=== PATIENT | female | born 1960 | race Asian ===

== ENCOUNTER 2024-05-23 20:05 | Inpatient (IN) | payer SELFPAY ==
[~2024-05-23] VITALS: Ht 157.5 cm; Wt 65.0 kg
[2024-05-23] MEDS ORDERED: ISOVUE-370 76% 100ML VIAL As Ordered ONE (20:54)
[2024-05-23] MEDS: LABETALOL 100MG/20ML VIAL IV STA (21:06)
[2024-05-23 21:24] LABS: BASO # 0.1 10^3/uL (0.0-0.2); BASO % 0.5 % (0.0-1.0); EOS # 0.1 10^3/uL (0.0-0.5); EOS % 1.4 % (0.0-3.0); HEMATOCRIT 44.7 % (36.0-47.0); HEMOGLOBIN 15.4 g/dl (12.0-15.5); LYMPH # 3.7 10^3/uL (1.5-5.0); LYMPH % 37.4 % (24.0-44.0); MEAN CORPUSCULAR HEMOGLOBIN 29.4 pg (27.0-33.0); MEAN CORPUSCULAR HGB CONC 34.5 g/dl (32.0-36.5); MEAN CORPUSCULAR VOLUME 85.5 fl (80.0-96.0); MONO # 0.5 10^3/uL (0.0-0.8); MONO % 5.4 % (2.0-8.0); NEUTROPHILS # 5.4 10^3/uL (1.5-8.5); NEUTROPHILS % 54.9 % (36.0-66.0); PLATELET COUNT, AUTOMATED 269 10^3/uL (150-450); RED BLOOD COUNT 5.23 10^6/uL (4.00-5.40); WHITE BLOOD COUNT 9.9 10^3/uL (4.0-10.0)
[2024-05-23 21:30] VITALS: BP 184/86; TEMP 97.4; O2SAT 100
[2024-05-23 21:49] LABS: INR 0.91
[2024-05-23] MEDS: ONDANSETRON 4MG 2ML VIAL IV ONE (22:06)
[2024-05-23 22:13] LABS: BLOOD UREA NITROGEN 15 MG/DL (9-23); CALCIUM LEVEL 9.9 MG/DL (8.3-10.6); CARBON DIOXIDE LEVEL 27 MMOL/L (20-31); CHLORIDE LEVEL 104 MMOL/L (98-107); CK-MB VALUE MASS < 1.0 NG/ML (<3.6); CPK CREATINE PHOSPHOKINASE 161 U/L (34-145); CREATININE FOR GFR 0.66 MG/DL (0.55-1.30); GLOMERULAR FILTRATION RATE > 60.0 (>45); GLUCOSE, FASTING 101 MG/DL (74-106); MB/CK RELATIVE INDEX 0.62 (< OR =4); POTASSIUM SERUM 5.5 MMOL/L (3.5-5.1); SODIUM LEVEL 139 MMOL/L (136-145)
[2024-05-23] MEDS ORDERED: ACETAMINOPHEN TAB 650MG DOSE (2X325MG) PO PRN (23:30)
[2024-05-23] MEDS ORDERED: LABETALOL 100MG/20ML VIAL IV PRN (23:30)
[2024-05-24] MEDS ORDERED: HOME MED LIST COMPLETE! XX SCH (00:25)
[2024-05-24 02:15] LABS: AMPHETAMINES LEVEL URINE NEGATIVE (NEGATIVE)
[2024-05-24 02:16] LABS: BARBITURATES URINE NEGATIVE (NEGATIVE); BENZODIAZEPINES URINE NEGATIVE (NEGATIVE); CANNABINOIDS URINE NEGATIVE (NEGATIVE); COCAINE METABOLITE URINE NEGATIVE (NEGATIVE); METHADONE URINE NEGATIVE (NEGATIVE); OPIATES URINE NEGATIVE (NEGATIVE); PHENCYCLIDINE URINE NEGATIVE (NEGATIVE)
[2024-05-24 03:33] VITALS: BP 163/84; TEMP 97.3; O2SAT 99
[2024-05-24] MEDS: THIAMINE INJection 500 MG in NS 100 ML IV SCH (03:49)
[2024-05-24 04:00] VITALS: BP 163/84; TEMP 97.3; O2SAT 99
[2024-05-24] MEDS: cefTRIAXone SOD 1 GM in D5W MINI-BAG PLUS 50 ML IV ONE (04:10)
[2024-05-24 07:21] LABS: HEMATOCRIT 41.1 % (36.0-47.0); HEMOGLOBIN 13.8 g/dl (12.0-15.5); MEAN CORPUSCULAR HEMOGLOBIN 29.4 pg (27.0-33.0); MEAN CORPUSCULAR HGB CONC 33.6 g/dl (32.0-36.5); MEAN CORPUSCULAR VOLUME 87.4 fl (80.0-96.0); PLATELET COUNT, AUTOMATED 206 10^3/uL (150-450); WHITE BLOOD COUNT 7.7 10^3/uL (4.0-10.0)
[2024-05-24 07:32] LABS: HEMOGLOBIN A1c 5.6 % (4.0-6.0)
[2024-05-24 07:56] LABS: ALBUMIN 3.9 G/DL (3.2-5.2); ALKALINE PHOSPHATASE 74 U/L (46-116); ALT/SGPT 17 U/L (7.0-40); AST/SGOT 12 U/L (<34); BILIRUBIN,TOTAL 0.7 MG/DL (0.3-1.2); BLOOD UREA NITROGEN 13 MG/DL (9-23); CALCIUM LEVEL 9.3 MG/DL (8.3-10.6); CARBON DIOXIDE LEVEL 29 MMOL/L (20-31); CHLORIDE LEVEL 104 MMOL/L (98-107); CHOLESTEROL LEVEL 214 MG/DL (<200); CREATININE FOR GFR 0.72 MG/DL (0.55-1.30); GLOMERULAR FILTRATION RATE > 60.0 (>45); GLUCOSE, FASTING 102 MG/DL (74-106); HDL CHOLESTEROL 53.4 MG/DL (>40); MAGNESIUM LEVEL 2.1 MG/DL (1.8-2.4); NON-HDL-C 160.6 MG/DL; POTASSIUM SERUM 3.8 MMOL/L (3.5-5.1); SODIUM LEVEL 140 MMOL/L (136-145); TOTAL PROTEIN 6.3 G/DL (5.7-8.2); TRIGLYCERIDES LEVEL 118 MG/DL (<150)
[2024-05-24 07:57] LABS: VITAMIN B12 LEVEL 420 PG/ML (211-911)
[2024-05-24 07:58] LABS: THYROID STIMULATING HORMONE 2.221 uIU/ML (0.55-4.78)
[2024-05-24] MEDS ORDERED: PANTOPRAZOLE 40MG TAB (PROTONIX) PO ONE (09:00)
[2024-05-24 10:00] VITALS: BP 143/70; TEMP 97.9; O2SAT 98
[2024-05-24] MEDS: ENOXAPARIN 40MG/0.4ML SYRINGE (J1650 PER 10MG) SC SCH (10:07)
[2024-05-24] MEDS: PANTOPRAZOLE 40MG TAB (PROTONIX) PO SCH (10:08)
[2024-05-24 12:47] VITALS: BP 142/74; TEMP 97.6; O2SAT 100
[2024-05-24 16:00] VITALS: BP 105/59; TEMP 97.9; O2SAT 96
[2024-05-24] MEDS: SUMAtriptan SUCCINATE 25 MG TAB PO ONE (17:38)
[2024-05-24] MEDS: ATORVASTATIN 20 MG TAB PO SCH (17:38)
[2024-05-24 19:11] VITALS: BP 157/80; O2SAT 97
[2024-05-24] MEDS: SUMAtriptan SUCCINATE 25 MG TAB PO PRN (19:57)
[2024-05-24] MEDS: ONDANSETRON 4MG 2ML VIAL IV ONE (22:08)
[2024-05-25 00:40] VITALS: BP 118/57; TEMP 98.2; O2SAT 97
[2024-05-25 04:09] VITALS: BP 115/68; TEMP 97; O2SAT 98
[2024-05-25] MEDS: cefTRIAXone SOD 1 GM in D5W MINI-BAG PLUS 50 ML IV SCH (05:52)
[2024-05-25 06:30] LABS: BLOOD UREA NITROGEN 13 MG/DL (9-23); CALCIUM LEVEL 9.2 MG/DL (8.3-10.6); CARBON DIOXIDE LEVEL 29 MMOL/L (20-31); CHLORIDE LEVEL 109 MMOL/L (98-107); CREATININE FOR GFR 0.84 MG/DL (0.55-1.30); GLOMERULAR FILTRATION RATE > 60.0 (>45); GLUCOSE, FASTING 105 MG/DL (74-106); MAGNESIUM LEVEL 2.1 MG/DL (1.8-2.4); SODIUM LEVEL 144 MMOL/L (136-145)
[2024-05-25 07:19] VITALS: BP 158/78; TEMP 97.8; O2SAT 98
[2024-05-25 08:00] VITALS: BP 158/78; PULSE 59; O2SAT 98
[2024-05-25 09:50] VITALS: BP 158/78
[2024-05-25] MEDS ORDERED: SUMA25TA3 PO (11:00)
[2024-05-25] MEDS ORDERED: LISI10TA22 PO (11:00)
[2024-05-25] MEDS ORDERED: ATOR1TAB21 PO (11:00)
[2024-05-25] MEDS ORDERED: CEFD1CAP9 PO (11:00)
== END 2024-05-25 12:47 | disposition home or self-care (01) | DRG 52 ==
LOC: M ED 20:05 → M ED INP 23:27 → M PCU 05-24 03:12
PROVIDERS: ADMIT Preventive Medicine Undersea and Hyperbaric Medicine; ATTEND Student in an Organized Health Care Education/Training Program
DX: G45.4 Transient global amnesia (principal); I67.4 Hypertensive encephalopathy; K21.9 Gastro-esophageal reflux disease without esophagitis; I16.9 Hypertensive crisis, unspecified; G43.909 Migraine, unspecified, not intractable, without status migrainosus; E78.5 Hyperlipidemia, unspecified; Z79.899 Other long term (current) drug therapy